=== PATIENT | male | born 1995 | race Caucasian/White ===

== ENCOUNTER 2017-08-20 20:42 | Emergency (ER) | payer OTHER ==
[~2017-08-20] VITALS: Ht 180.3 cm; Wt 65.8 kg
[2017-08-20 20:50] VITALS: BP 141/89
[2017-08-20] MEDS ORDERED: KEFLEX250 MG PO (21:22)
== END 2017-08-20 21:36 | disposition home or self-care (01) ==
LOC: M.ERS 20:42
DX: S61.412A Laceration without foreign body of left hand, initial encounter (principal); W26.0XXA Contact with knife, initial encounter; Y93.89 Activity, other specified; Y92.89 Other specified places as the place of occurrence of the external cause; Y99.8 Other external cause status